=== PATIENT | male | born 1995 | race Two or more races ===

== ENCOUNTER 2019-10-15 01:00 | Inpatient (IN) | payer MEDICAID ==
[~2019-10-15] VITALS: Ht 170.2 cm; Wt 75.7 kg
[2019-10-15 01:30] VITALS: BP 155/86
--- NOTE | 2019-10-15 01:30 | NUR ---
ms title attorney note received patient as direct admit from [facility]. brought in via gurney. ambulated to bed with steady gait. a/ox4. tolerating room air, respirations are even and unlabored, no s/s sob noted. c/o pain 9/10 in RUQ radiating to back, sharp. informed will need to obtain an order from MD for pain medication. in no apparent distress. iv access in RAC#20 patent and saline locked. initial physical assessment and past medical history completed at this time. states no family history, no current home medications. skin assessment completed, skin is intact. SALES ACCOUNT REPRESENTATIVE obtained vitals and belongings list. patient id band placed. bed is low and locked, hob elevated in semi fowlers, side rials up x2, call light within reach. will continue to monitor.
--- NOTE | 2019-10-15 02:14 | NUR ---
ms rn note informed MD direct admit is here and to please place admitting orders. system is down. MD telephone ordered: keep patient NPO, start NS@125ml/hr, patient is admitted for pancreatitis and med surg status. ordered read back noted and carried out.
--- NOTE | 2019-10-15 02:30 | NUR ---
ms rn note informed patient of NPO status. placed sign on door and on table. room is clear of all food and drink. will continue to monitor.
--- NOTE | 2019-10-15 03:50 | NUR ---
ms rn note informed MD patient is in pain. last pain medication received was 1mg Dilaudid IV at 0048 at [facility] before transfer per EMT report. system is down. MD telephone ordered morphine 2mg IV Q4hr. order read back noted and carried out.
[2019-10-15] MEDS ORDERED: MORPHINE SULFATE INJ 2 MG/ML DISP.SYRIN ONE (03:56)
--- NOTE | 2019-10-15 05:10 | NUR ---
ms rn note 0401 administered morphine 2mg IV for pain /10 in RUQ radiating to back, pain is sharp. will continue to monitor. 0440 reassessed patient, sleeping, easily arousable. will continue to monitor. system down paperwork has been completed and placed in chart.
[2019-10-15 05:57] VITALS: BP 155/86
[2019-10-15] MEDS ORDERED: ZOLPIDEM TARTRATE 5 MG TABLET PO PRN (06:00)
[2019-10-15] MEDS ORDERED: MORPHINE SULFATE INJ 2 MG/ML DISP.SYRIN IV PRN (06:00)
[2019-10-15] MEDS ORDERED: ONDANSETRON HCL/PF 4 MG/2 ML VIAL IVP PRN (06:00)
[2019-10-15] MEDS ORDERED: ACETAMINOPHEN 325 MG TABLET PO PRN (06:00)
[2019-10-15] MEDS ORDERED: MAGNESIUM HYDROXIDE 30 ML UDC PO PRN (06:00)
[2019-10-15] MEDS: IV NS 0.9% 1,000 ML IV PRN ×2 (06:58→15:47)
[2019-10-15] MEDS: HYDROCODONE/APAP 5/325MG 1 EACH TABLET PO PRN ×2 (07:00→23:49)
[2019-10-15 07:07] LABS: BASOPHILS % (AUTO) 0.5 % (0.0-2.0); EOSINOPHILS % (AUTO) 3.6 % (0.0-6.0); HEMATOCRIT 47 % (39-51); HEMOGLOBIN 15.8 g/dL (13.5-17.5); LYMPHOCYTES # (AUTO) 2.5 /CMM (0.8-4.8); LYMPHOCYTES % (AUTO) 27.6 % (20.0-44.0); MEAN CORPUSCULAR HGB CONC 33 g/dl (31.0-36.0); MEAN CORPUSCULAR VOLUME 93 fL (80-96); MONOCYTES # (AUTO) 1.1 /CMM (0.1-1.30); NEUTROPHILS % (AUTO) 56.3 % (43.0-81.0); PLATELET COUNT (AUTO) 156 /CMM (150-450); RED BLOOD CELL COUNT(AUTO) 5.12 MIL/uL (4.5-6.0); WHITE BLOOD COUNT (AUTO) 8.9 K/uL (4.3-11.0)
[2019-10-15 07:12] LABS: CALCIUM, SERUM 8.4 mg/dL (8.5-10.1); CREATININE 0.9 mg/dL (0.6-1.3); MAGNESIUM 2.2 mg/dL (1.8-2.4); PHOSPHORUS 3.4 mg/dL (2.5-4.9); POTASSIUM 4.1 mmol/L (3.5-5.1)
--- NOTE | 2019-10-15 07:30 | NUR ---
RN MS NOTES PT IN BED, AWAKE, ALERT AND ORIENTED, COMPLAINING OF PAIN TO RUQ RADIATING AT THE BACK, RESPIRATIONS NORMAL, IV FLUIDS INFUSING WELL, CALL LIGHT WITHIN REACH.
--- NOTE | 2019-10-15 07:40 | NUR ---
ms rn note ask patient if they would like to be placed on DVT pumps as ordered, patient refused. educated on the risk and benefits. patient continues to refuse. informed AM RN. VTE score is 0.
--- NOTE | 2019-10-15 07:42 | NUR ---
ms rn closing note patient in bed. a/ox4. remains tolerating room air, respirations are even and unlabored, no sob noted. currently c/o pain 12/02 in RUQ radiating to back, informed him that his morphine is not due till 0800. was not able to give norco 5/325 d/t npo status. no other distress noted. iv access remains in RAC#20 running NS@75ml/hr. bed remains low and locked, hob elevated in semi fowlers, side rials up x2, call light within reach. will endorse to next shift.
[2019-10-15] MEDS ORDERED: HYDR-3972 MT (07:49)
[2019-10-15 08:00] VITALS: BP 158/82
[2019-10-15] MEDS: HYDROMORPHONE 1 MG/1 ML DISP.SYRIN IV PRN ×5 (10:04→22:01)
--- NOTE | 2019-10-15 12:33 | NUR ---
RN MS NOTES PT IN BED, SLEEPS INTERMITTENTLY, SEEN BY DR. SANDERS, PLAN OF CARE DISCUSSED WITH PT, VERBALIZED UNDERSTANDING, MD CHANGED HIS PAIN MEDS, PT STATED THAT DILAUDID IS BETTER FOR HIS PAIN, WILL CONTINUE TO MONITOR, IV FLUIDS INFUSING.
[2019-10-15 15:52] VITALS: BP 144/89
--- NOTE | 2019-10-15 18:24 | NUR ---
RN MS NOTES PT IN BED, AWAKE, ALERT AND ORIENTED, PAIN MEDICATION GIVEN FOR PAIN MANAGEMENT, IV FLUIDS INFUSING WELL, CALL LIGHT WITHIN REACH, ABLE TO WALK TO THE BATHROOM WITH STEADY GAIT, NEEDS ATTENDED.
--- NOTE | 2019-10-15 19:35 | NUR ---
MS RN OPENING NOTES PATIENT AWAKE IN BED. A/OX4. ON RA. NO C/O SOB; BREATHING IS EVEN AND UNLABORED. PATIENT C/O OF SLIGHT ABDOMINAL PAIN; PER DAY SHIFT NURSE PATIENT RECEIVED PRN DILAUDID AT 1845; WARM COMPRESS GIVEN TO PATIENT FOR RELIEF. IV PRESENT ON LEFT AC, SIZE 20, INTACT & PATENT WITH NS RUNNING AT 75 ML/HR. SAFETY MEASURES IN PLACE AND PATIENT'S NEEDS MET. BED LOCKED, SIDE RAILS X2, CALL LIGHT WITHIN REACH. WILL CONTINUE TO MONITOR.
[2019-10-15 20:00] VITALS: BP 146/85
[2019-10-15 20:53] VITALS: BP 146/85
[2019-10-16] MEDS: HYDROMORPHONE 1 MG/1 ML DISP.SYRIN IV PRN ×6 (01:43→17:01)
[2019-10-16 06:29] LABS: BASOPHILS % (AUTO) 0.6 % (0.0-2.0); HEMATOCRIT 47 % (39-51); HEMOGLOBIN 15.8 g/dL (13.5-17.5); LYMPHOCYTES # (AUTO) 2.3 /CMM (0.8-4.8); LYMPHOCYTES % (AUTO) 31.7 % (20.0-44.0); MEAN CORPUSCULAR HGB CONC 34 g/dl (31.0-36.0); MEAN CORPUSCULAR VOLUME 92 fL (80-96); MONOCYTES # (AUTO) 0.8 /CMM (0.1-1.30); MONOCYTES % (AUTO) 11.3 % (2.0-12.0); NEUTROPHILS # (AUTO) 3.9 /CMM (1.8-8.9); NEUTROPHILS % (AUTO) 52.4 % (43.0-81.0); PLATELET COUNT (AUTO) 155 /CMM (150-450); RED BLOOD CELL COUNT(AUTO) 5.13 MIL/uL (4.5-6.0); WHITE BLOOD COUNT (AUTO) 7.4 K/uL (4.3-11.0)
--- NOTE | 2019-10-16 06:59 | NUR ---
MS RN CLOSING NOTES PATIENT AWAKE IN BED. A/OX4. ON RA. NO C/O SOB; BREATHING IS EVEN AND UNLABORED. IV PRESENT ON LEFT AC, SIZE 20, INTACT & PATENT WITH NS RUNNING AT 75 ML/HR. SAFETY MEASURES IN PLACE AND PATIENT'S NEEDS MET. BED LOCKED, SIDE RAILS X2, CALL LIGHT WITHIN REACH. WILL ENDORSE TO DAY SHIFT NURSE PLAN OF CARE
[2019-10-16 07:05] LABS: ALBUMIN 3.6 g/dL (3.4-5.0); BILIRUBIN,TOTAL 0.6 mg/dL (0.2-1.0); CALCIUM, SERUM 8.9 mg/dL (8.5-10.1); CREATININE 0.7 mg/dL (0.6-1.3); MAGNESIUM 2.1 mg/dL (1.8-2.4); PHOSPHORUS 3.6 mg/dL (2.5-4.9); POTASSIUM 3.8 mmol/L (3.5-5.1)
[2019-10-16] MEDS: IV NS 0.9% 1,000 ML IV PRN (07:59)
[2019-10-16 08:00] VITALS: BP 141/85
[2019-10-16 16:00] VITALS: BP 124/63
--- NOTE | 2019-10-16 17:32 | NUR ---
rn notes pt to be discharged home. no sob noted, vss. denies pain at this time. IV line removed. minimal bleeding. No further questions or concerns about his dc order. to be picked up by friend. nothing missing from his belongings.
== END 2019-10-16 17:30 | disposition home or self-care (01) | DRG 282 ==
LOC: MED 01:22
DX: K85.20 Alcohol induced acute pancreatitis without necrosis or infection (principal); F41.9 Anxiety disorder, unspecified; F32.9 Major depressive disorder, single episode, unspecified; E78.1 Pure hyperglyceridemia; F10.10 Alcohol abuse, uncomplicated; Y90.9 Presence of alcohol in blood, level not specified
CPT/HCPCS: 36415; 80048-TC; 80053-TC; 80061-TC; 83690-TC; 83735-TC; 84100-TC; 85025-TC; 87081-TC; G0378; J1170; J2270; J7030

== ENCOUNTER 2023-10-22 19:28 | Emergency (ER) | payer MEDICAID, OTHER ==
[~2023-10-22] VITALS: Ht 175.3 cm; Wt 92.5 kg
[~2023-10-22 19:28] MED LIST: HYDR-3972 MT
[2023-10-22] MEDS ORDERED: MORPHINE SULFATE INJ 4 MG/ML DISP.SYRIN ONE (20:14)
[2023-10-22] MEDS ORDERED: ONDANSETRON HCL/PF 4 MG/2 ML VIAL ONE (20:14)
[2023-10-22 20:17] LABS: BASOPHILS # (AUTO) 0.1 K/uL (0.0-0.2); BASOPHILS % (AUTO) 0.6 % (0.0-2.0); EOSINOPHILS # (AUTO) 0.1 K/uL (0.0-0.7); EOSINOPHILS % (AUTO) 0.8 % (0.0-6.0); HEMATOCRIT 47 % (39-51); HEMOGLOBIN 16.1 g/dL (13.5-17.5); LYMPHOCYTES # (AUTO) 1.7 K/uL (0.8-4.8); LYMPHOCYTES % (AUTO) 20.3 % (20.0-44.0); MEAN CORPUSCULAR HEMOGLOBIN 30 PG (26.0-33.0); MEAN CORPUSCULAR HGB CONC 34 g/dl (31.0-36.0); MEAN CORPUSCULAR VOLUME 89 fL (80-96); MONOCYTES # (AUTO) 0.6 K/uL (0.1-1.30); MONOCYTES % (AUTO) 7.1 % (2.0-12.0); NEUTROPHILS # (AUTO) 5.9 K/uL (1.8-8.9); NEUTROPHILS % (AUTO) 71.2 % (43.0-81.0); PLATELET COUNT (AUTO) 211 K/uL (150-450); RED BLOOD CELL COUNT(AUTO) 5.28 MIL/uL (4.5-6.0); RED CELL DISTRIBUTION WIDTH 13.7 % (11.5-15.0); WHITE BLOOD COUNT (AUTO) 8.3 K/uL (4.3-11.0)
[2023-10-22] MEDS: IV NS 0.9% 1,000 ML BAG IV ONE (20:21)
[2023-10-22] MEDS: MORPHINE SULFATE INJ 2 MG/ML DISP.SYRIN IV ONE (20:21)
[2023-10-22] MEDS: ONDANSETRON HCL/PF 4 MG/2 ML VIAL IVP ONE (20:21)
[2023-10-22 20:39] LABS: POTASSIUM 4.2 mmol/L (3.5-5.1)
[2023-10-22 20:40] LABS: CALCIUM, SERUM 9.1 mg/dL (8.5-10.1); CREATININE 0.9 mg/dL (0.6-1.3)
[2023-10-22 20:45] LABS: BILIRUBIN,DIRECT 0.2 mg/dL (0.0-0.2); BILIRUBIN,TOTAL 0.6 mg/dL (0.2-1.0)
[2023-10-22 21:28] LABS: APPEARANCE,URINE Clear (CLEAR); BILIRUBIN,URINE Negative (NEGATIVE); BLOOD, URINE Negative Ery/uL (NEGATIVE); COLOR,URINE YELLOW (YELLOW); KETONES,URINE Negative (NEGATIVE); LEUKOCYTE ESTERASE ,URINE Negative (NEGATIVE); NITRITE, URINE Negative (NEGATIVE); PH,URINE 6.5 (5.0-8.0); PROTEIN,URINE Negative (NEGATIVE); UGLUCOSE 100 MG/DL mg/dL (NEGATIVE); UROBILINOGEN,URINE 0.2 EU/dL (0.2)
[2023-10-22] MEDS ORDERED: MAG HYDROX/AL HYDROX/SIMETH 30 ML UDC ONE (22:50)
[2023-10-22] MEDS ORDERED: LIDOCAINE VISCOUS 2% UD 15 ML UDC ONE (22:50)
[2023-10-22] MEDS ORDERED: ACETAMINOPHEN ES 500 MG TABLET ONE (22:50)
[2023-10-22] MEDS: ACETAMINOPHEN ES 500 MG TABLET PO ONE (22:59)
[2023-10-22] MEDS: LIDOCAINE VISCOUS 2% UD 15 ML UDC MM ONE (22:59)
[2023-10-22] MEDS: MAG HYDROX/AL HYDROX/SIMETH 30 ML UDC PO ONE (22:59)
[2023-10-22 23:00] VITALS: BP 141/91; TEMP 98.6; O2SAT 99
== END 2023-10-22 23:01 ==
LOC: ER 19:30
DX: R10.11 Right upper quadrant pain (principal); R11.2 Nausea with vomiting, unspecified; F32.A Depression, unspecified; F41.9 Anxiety disorder, unspecified; Z87.39 Personal history of other diseases of the musculoskeletal system and connective tissue; Z87.828 Personal history of other (healed) physical injury and trauma; Z88.0 Allergy status to penicillin; Z91.030 Bee allergy status
CPT/HCPCS: 99285; 96374; 76705; 96361; 96375; 85025; 80048; 83690; 80076; 81003; 36415; J2270; J2405; J7030